=== PATIENT | male | born 1980 | race Caucasian/White ===

== ENCOUNTER 2017-11-23 13:09 | Emergency (ER) | payer OTHER ==
[2017-11-23 13:32] VITALS: BP 123/83
--- NOTE | 2017-11-23 13:55 | ER Document Report ---
ED General - General Chief Complaint: Medication Refill Stated Complaint: MEDICATION REFILL Time Seen by Provider: 11/23/17 13:49 Mode of Arrival: Ambulatory Information source: Patient TRAVEL OUTSIDE OF THE [place] IN LAST 30 DAYS: No - HPI Patient complains to provider of: med refill Onset: Just prior to arrival - pt from out of town and has run out of his meds - Related Data Allergies/Adverse Reactions: No Known Allergies Allergy (Verified 11/23/17 13:45) Past Medical History - General Information source: Patient - Social History Smoking Status: Never Smoker Chew tobacco use (# tins/day): Yes Frequency of alcohol use: None Drug Abuse: None Family History: None Patient has suicidal ideation: No Patient has homicidal ideation: No Renal/ Medical History: Denies: Hx Peritoneal Dialysis Review of Systems - Review of Systems Constitutional: No symptoms reported EENT: No symptoms reported Cardiovascular: No symptoms reported Respiratory: No symptoms reported Gastrointestinal: No symptoms reported Neurological/Psychological: No symptoms reported -: Yes All other systems reviewed and negative Physical Exam - Vital signs Vitals: Temp Pulse Resp BP Pulse Ox 98.5 F 79 16 123/83 99 11/23/17 13:31 11/23/17 13:31 11/23/17 13:31 11/23/17 13:31 11/23/17 13:31 - General General appearance: Appears well In distress: None - HEENT Head: Normocephalic Pharynx: Normal Neck: Normal - Respiratory Respiratory status: No respiratory distress Breath sounds: Normal - Cardiovascular Rhythm: Regular Heart sounds: Normal auscultation - Abdominal Inspection: Normal Tenderness: Nontender - Neurological Neuro grossly intact: Yes Cognition: Normal Orientation: AAOx4 Course - Vital Signs Vital signs: Temp Pulse Resp BP Pulse Ox 98.5 F 79 16 123/83 99 11/23/17 13:31 11/23/17 13:31 11/23/17 13:31 11/23/17 13:31 11/23/17 13:31 Discharge - Discharge Clinical Impression: Medication refill Condition: Stable Disposition: HOME, SELF-CARE Additional Instructions: rest, take meds as prescribed, return if worse Prescriptions: Hydroxychloroquine Sulfate [Plaquenil 200 mg Tablet] 200 mg PO BID #60 tab Levothyroxine Sodium [Synthroid] 125 mcg PO DAILY #30 tablet Prednisone 40 mg PO BID #30 tablet Referrals: KATERINE PELAEZ MD [ACTIVE STAFF] - Follow up as needed
== END 2017-11-23 13:50 | disposition home or self-care (01) ==
LOC: ER 13:09
DX: Z76.0 Encounter for issue of repeat prescription (principal)
CPT/HCPCS: 99281